=== PATIENT | female | born 1995 | race Caucasian/White ===

== ENCOUNTER 2017-01-17 12:43 | Emergency (ER) | payer MEDICAID ==
[~2017-01-17] VITALS: Ht 162.6 cm; Wt 66.2 kg
[2017-01-17 12:49] VITALS: BP 105/63
[2017-01-17] MEDS ORDERED: PNV1TABL5 PO (12:51)
--- NOTE | 2017-01-17 13:04 | NUR ---
Patient ambulated to bed 2. RN evaluating patient at bedside.
--- NOTE | 2017-01-17 13:07 | NUR ---
21F BIB FAMILY C/O UTI SYMPTOMS X 1 WEEK; PT STATES HAS VAGINAL BURNING, 3/10; PT C/O RETENTION, FREQUENCY, URGENCY, BUT DENIES VAGINAL DRAINAGE OR BLEEDING AT THIS TIME; PT STATES 12 WEEKS ; A&OX4, BL LUNG SOUNDS CLEAR, RR EVEN/UNLABORED, SKIN IS WARM/DRY/NTACT AT THIS TIME; PT DENIES N/V/D AT THIS TIME; STEADY GAIT; PT RESTING IN BED W/ HOB ELEVATED AND IN LOWEST POSITION; POSITIONED FOR COMFORT; ER MD MADE AWARE OF STATUS. WILL CONTINUE TO MONITOR.
[2017-01-17 13:42] VITALS: BP 108/67
--- NOTE | 2017-01-17 13:42 | NUR ---
Patient discharged with v/s stable. Written and verbal after care instructions given and explained. Patient alert, oriented and verbalized understanding of instructions. Ambulatory with steady gait. All questions addressed prior to discharge. ID band removed. Patient advised to follow up with PMD. Rx of KEFLEX 500MG given. Patient educated on indication of medication including possible reaction and side effects. Opportunity to ask questions provided and answered.
[2017-01-17 14:09] LABS: APPEARANCE,URINE HAZY (CLEAR); BILIRUBIN,URINE NEGATIVE (NEGATIVE); BLOOD, URINE NEGATIVE (NEGATIVE); COLOR,URINE YELLOW (YELLOW); LEUKOCYTE ESTERASE ,URINE 1+ (NEGATIVE); NITRITE, URINE NEGATIVE (NEGATIVE); PROTEIN,URINE TRACE (NEGATIVE); UGLUCOSE NEGATIVE (NEGATIVE); UROBILINOGEN,URINE 0.2 EU/dL (0.2 - 1)
[2017-01-17 14:12] LABS: BACTERIA,URINE 1+ /HPF (None Seen); RBC,URINE 0-5 /HPF (0-5); WBC,URINE 80-100 /HPF (0-5)
[2017-01-17 14:13] LABS: MUCUS,URINE 1+ /LPF (None Seen)
== END 2017-01-17 13:42 | disposition home or self-care (01) ==
LOC: MED 12:43
DX: O23.01 Infections of kidney in pregnancy, first trimester (principal); Z3A.12 12 weeks gestation of pregnancy
CPT/HCPCS: 81001; 81025; 87086; 87186; 99283; 99284

== ENCOUNTER 2017-02-19 17:11 | Emergency (ER) | payer MEDICAID ==
[~2017-02-19] VITALS: Ht 157.5 cm; Wt 82.6 kg
[~2017-02-19 17:11] MED LIST: PNV1TABL5 PO
[2017-02-19 17:22] VITALS: BP 93/59
[2017-02-19 17:56] LABS: BASOPHILS # (AUTO) 0.1 K/uL (0.00-0.22); EOSINOPHILS # (AUTO) 0.2 K/uL (0-0.4); HEMATOCRIT 34.6 % (36-48); HEMOGLOBIN 11.4 g/dL (12.0-16.0); LYMPHOCYTES % (AUTO) 21.8 % (20.5-51.1); MEAN CORPUSCULAR HEMOGLOBIN 29 pg (27-31); MEAN CORPUSCULAR HGB CONC 33 g/dL (33-37); MEAN CORPUSCULAR VOLUME 88 fL (80-94); MONOCYTES # (AUTO) 0.5 K/uL (0.8-1.0); MONOCYTES % (AUTO) 5.3 % (1.7-9.3); NEUTROPHILS # (AUTO) 6.3 K/uL (1.8-7.7); NEUTROPHILS % (AUTO) 69.9 % (42.2-75.2); PLATELET COUNT (AUTO) 211 K/uL (140-450); RED BLOOD CELL COUNT(AUTO) 3.94 MIL/uL (4.20-5.40); RED CELL DISTRIBUTION WIDTH 12.9 % (11.6-13.7); WHITE BLOOD COUNT (AUTO) 9.1 K/uL (4.8-10.8)
--- NOTE | 2017-02-19 19:06 | NUR ---
PT IS 21/F BIB SELF TO ED WITH C/O VAGINAL DISCHARGE, ITCHING , BURNING PAIN, SWELLING X 5 DAYS. PT USED OVER THE COUNTER MONISTAT 3, NO SUCCESS 18WKS IUP PT DENIES MED HX.DENIES N/V/D; SKIN IS PINK/WARM/DRY; AAOX4 WITH EVEN AND STEADY GAIT; LUNGS CLEAR BL; HR EVEN AND REGULAR; PT DENIES ANY FEVER, CP, SOB, OR COUGH AT THIS TIME; PATIENT STATES PAIN OF 4/10 AT THIS TIME; VSS; PATIENT POSITIONED FOR COMFORT; HOB ELEVATED; BEDRAILS UP X2; BED DOWN. ER MD MADE AWARE OF PT STATUS.
--- NOTE | 2017-02-19 19:24 | NUR ---
DISCHARGE NOTE ONLY: Patient discharged with v/s stable. Written and verbal after care instructions given and explained. Patient alert, oriented and verbalized understanding of instructions. Ambulatory with steady gait. All questions addressed prior to discharge. ID band removed. Patient advised to follow up with PMD. Rx of CLOTRIMAZOLE 1% CREAM given. Patient educated on indication of medication including possible reaction and side effects. Opportunity to ask questions provided and answered.
[2017-02-19 19:25] VITALS: BP 101/67
== END 2017-02-19 19:24 | disposition home or self-care (01) ==
LOC: MED 17:11
DX: O23.592 Infection of other part of genital tract in pregnancy, second trimester (principal); Z3A.19 19 weeks gestation of pregnancy
CPT/HCPCS: 76805; 84702; 85025; 86900; 86901; 99285; Q0092

== ENCOUNTER 2017-04-05 15:50 | Observation (INO) | payer MEDICAID ==
[~2017-04-05] VITALS: Ht 157.5 cm; Wt 68.9 kg
[2017-04-05 16:21] VITALS: BP 100/63
[2017-04-05] MEDS ORDERED: TERBUTALINE 1 MG/ML VIAL SUBQ SCH (17:30)
[2017-04-05] MEDS ORDERED: TERBUTALINE 1 MG/ML VIAL SUBQ ONE (17:36)
== END 2017-04-05 20:54 | disposition home or self-care (01) ==
LOC: MLD 15:50
PROVIDERS: ADMIT Obstetrics & Gynecology; ATTEND Obstetrics & Gynecology
DX: O62.9 Abnormality of forces of labor, unspecified (principal); Z3A.34 34 weeks gestation of pregnancy
CPT/HCPCS: 76805; G0378; J3105; Q0092